=== PATIENT | male | born 1965 | race African-American/Black ===

== ENCOUNTER 2022-09-24 12:25 | Emergency (ER) | payer OTHER, SELFPAY ==
--- NOTE | ~2022-09-24 | XR_ITS ---
EXAMINATION: XR CHEST CLINICAL INFORMATION: Anxiety. COMPARISON: None available. TECHNIQUE: Frontal view of the chest was obtained. FINDINGS: No significant abnormality is noted involving the heart, lungs, mediastinum, bony thorax or soft tissues. XR/XR chest 1V IMPRESSION: No acute cardiopulmonary process.
[2022-09-24 12:35] VITALS: BP 144/92; BP 190/118; PULSE 100; PULSE 106; RESP 12; TEMP 36.4; O2SAT 97; BMI 29.2
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
--- OUTSIDE RECORDS SUMMARY | 2022-09-24 13:16 | XMS_ITS | Continuity of Care Document ---
Author Name Unknown Organization [facility] Address [address] [place] [id number]- Care Team Providers Care Transit Authority Police Officer Name Role Phone Juan CUMMINS, Kellee Vazquez Primary Care Physician Encounter [facility] Date(s): 03/21/22 - 04/20/22 [facility] [address] [place], [place] [address] Attending Physician: Rm Blunt Admitting Physician: Rm Blunt Referring Physician: AdmtrRm Allergies, Adverse Reactions, Alerts No Known Allergies Immunizations Given and Recorded Vaccine Date Status Refusal Reason SARS-CoV-2 (COVID-19) mRNA BNT-162b2 vac 04/12/21 Recorded SARS-CoV-2 (COVID-19) mRNA BNT-162b2 vac 10/09/20 Recorded SARS-CoV-2 (COVID-19) mRNA BNT-162b2 vac 09/16/20 Recorded influenza virus vaccine, inactivated 03/27/21 Juan rded influenza virus vaccine, inactivated 05/20/12 Juan rded Medications acetaminophen 325 mg oral tablet 650 mg, By Mouth, Every 4 hours, PRN, # 50 tablet, Refills 1, Tot. Refills 1, Maintenance, Pain , Moderate, 02/15/22 11:19:00 EDT, Route to Pharmacy Electronically, [facility] #[id number], Partial fill upon patient request if the prescription is... Start Date: 02/15/22 Status: Ordered Albuterol 2 puffs, Inhalation, PRN Wheezing/Shortness of Breath, 0 Refills, Maintenance, 06/04/14 16:02:35 Start Date: 06/04/14 Status: Ordered amLODIPine 5 mg oral tablet 5 mg, 1, tablet, By Mouth, Daily, # 30 tablet, Refills 0, Tot. Refills 0, Maintenance, 02/18/22 15:08:00 EDT, Route to Pharmacy Electronically, [id number], Partial fill upon patient request if the prescription is for a schedule II opioid drug.... Start Date: 02/18/22 Status: Ordered aspirin 81 mg oral delayed release tablet 81 mg, By Mouth, Daily, # 30 tablet, Refills 2, Tot. Refills 2, Maintenance, 02/18/22 15:21:00 EDT,Route to Pharmacy Electronically, [id number], Partial fill upon patient request if the prescription is for a schedule II opioid drug., 195, cm,... Start Date: 02/18/22 Status: Ordered Flovent HFA 110 mcg/inh inhalation aerosol 2 puffs = 220 mcg, Inhalation, 2 times a day, # 1 each, 0 Refills, Maintenance, 02/18/22 15:10:00 EDT, Aerosol, [id number], Partial fill upon patient request if the prescription is for a schedule II opioid drug., Ashley cm, 02/15/22 12:17:00 EDT... Start Date: 02/18/22 Status: Ordered folic acid 1 mg oral tablet 1 mg, 1, tablet, By Mouth, Daily, # 30 tablet, Refills 4, Tot. Refills 4, Maintenance, 02/18/22 15:10:00 EDT, Route to Pharmacy Electronically, [id number], Partial fill upon patient request if the prescription is for a schedule II opioid drug.... Start Date: 02/18/22 Status: Ordered gabapentin 100 mg oral capsule 300 mg, 3, capsule, By Mouth, 3 times a day, # 270 capsule, Refills 0, Tot. Refills 0, Maintenance,02/18/22 15:09:00 EDT, Route to Pharmacy Electronically, [id number], Partial fill upon patient request if the prescription is for a schedule II... Start Date: 02/18/22 Status: Ordered Keppra 500 mg oral tablet 2 tablet = 1,000 mg, By Mouth, Every 12 hours, # 360 tablet, 1 Refills, Maintenance, 03/21/22 12:46:00 EDT, Tablet, [id number], Partial fill upon patient request if the prescription is for a schedule II opioid drug., Ashley cm, 03/20/22 13:50:00... Start Date: 03/21/22 Stop Date: 09/17/22 Status: Ordered melatonin 5 mg oral tablet By Mouth, Daily at bedtime, 0 Refills, Maintenance, 02/15/22 11:12:00 EDT, Tablet, Partial fill upon patient request if the prescription is for a schedule II opioid drug. Start Date: 02/15/22 Status: Ordered OxyCONTIN 10 mg oral tablet, extended release 20 mg, 2, tablet, By Mouth, Every 12 hours, # 28 tablet, Refills 0, Tot. Refills 0, Maintenance, 02/15/22 11:12:00 EDT, Route to Pharmacy Electronically, [facility] #[id number], Partial fill upon patient request if the prescription is for a sched... Start Date: 02/15/22 Stop Date: 02/22/22 Status: Ordered Percocet-5/325 325 mg-5 mg oral tablet 2 tablet, By Mouth, Every 6 hours, PRN for pain, # 12 tablet, 0 Refills, Maintenance, Tablet Start Date: 09/06/12 Status: Ordered pyridoxine 100 mg oral tablet 0.5 tablet = 50 mg, By Mouth, Daily, # 100 tablet, 0 Refills, Maintenance, 02/18/22 15:09:00 EDT, Tablet, [facility]/pharmacy #[id number], Partial fill upon patient request if the prescription is for a schedule II opioid drug., 195, , 02/15/22 12:17:00 EDT, David... Start Date: 02/18/22 Status: Ordered Remeron 15 mg oral tablet 1 tablet = 15 mg, By Mouth, Daily at bedtime, 0 Refills, Maintenance, 04/16/22 9:59:00 EDT, Partialfill upon patient request if the prescription is for a schedule II opioid drug. Start Date: 04/16/22 Status: Ordered thiamine 100 mg oral tablet 100 mg, 1, tablet, By Mouth, 2 times a day, # 100 tablet, Refills 0, Tot. Refills 0, Maintenance, 02/18/22 15:10:00 EDT, Route to Pharmacy Electronically, [facility]/pharmacy #[id number], Partial fill upon patient request if the prescription is for a schedule II o... Start Date: 02/18/22 Status: Ordered Problem List Condition Confirmation Course Effective Dates Status Health St atus Informant Asthma Confirmed Active Neck fracture Confirmed Active Lumbar disc disease Confirmed Active Social History Social History Type Response Smoking Status Never smoker entered on: 06/04/14 Sex Male Patient Care team information Personnel Name: Juan CUMMINS, Kellee Vazquez Address: Address: [address] [place] [address], [address] Primary Care and Weight Management [address]
--- OUTSIDE RECORDS SUMMARY | 2022-09-24 13:17 | XMS_ITS | Continuity of Care Document ---
Author Name Unknown Organization [facility] Address [address] [place] [id number]- Care Team Providers Care Concrete Worker Name Role Phone Juan CUMMINS, Kellee Vazquez Primary Care Physician [phone] [id number] Date[facility]s): [facility]28[facility] - 04/04/22 [facility] [address] [place] [address]- Attending Physician: Kt CUMMINS, Terrie Rao Admitting Physician: Kt CUMMINS, Terrie Rao Referring Physician: Kt CUMMINS, Terrie Rao Allergies, Adverse Reactions, Alerts No Known Allergies [...] 02/15/22 11:19:00 EDT, Route to Pharmacy Electronically, [facility] #[id number], Partial fill upon patient request if the [...] for a schedule II opioid drug., 195, cm, 02/15/22 12:17:00 EDT... Start Date: 02/18/22 [...] for a schedule II opioid drug., 195, cm, 03/20/22 13:50:00... Start Date: 03/21/22 Stop [...] 02/15/22 11:12:00 EDT, Route to Pharmacy Electronically, [email or web address] #[id number], Partial fill upon patient request if the [...] 0 Refills, Maintenance, 02/18/22 15:09:00 EDT, Tablet, [facility]acy #[id number], Partial fill upon patient request if the prescription is for a schedule II opioid drug., 195, cm, 02/15/22 12:17:00 EDT, Heig... Start Date: 02/18/22 Status: Ordered thiamine 100 mg oral tablet 100 mg, 1, tablet, By Mouth, 2 times a day, # 100 tablet, Refills 0, Tot. Refills 0, Maintenance, 02/18/22 15:10:00 EDT, Route to Pharmacy Electronically, [facility]acy #[id number], Partial fill upon patient request if the prescription is for a schedule II o... Start Date: 02/18/22 Status: Ordered Problem List Condition Confirmation Course Effective Dates Status Health St atus Informant Asthma Confirmed Active Neck fracture Confirmed Active Lumbar disc disease Confirmed Active Vital Signs Most recent to oldest [Reference Range]: 1 Height 195 cm (03/28/22 10:22 AM) Weight 97.72 kg (03/28/22 10:22 AM) Oxygen Saturation [94-100 %] 97 % (03/28/22 10:22 AM) Pulse Rate [55-90 bpm] 93 bpm *H* (03/28/22 10:22 AM) Body Mass Index [18.5-24.99 kg/m2] 25.7 kg/m2 *H* (03/28/22 10:22 AM) Blood Pressure [90-138/55-84 mm Hg] 100/ 72mm Hg (03/28/22 10:22 AM) Mode of Delivery (Oxygen) Room air (03/28/22 10:22 AM) Blood pressure sites Arm, left (03/28/22 10:22 AM) Weight Obtained Via Patient/family state d (03/28/22 10:22 AM) Social History Social History Type Response Smoking Status Never smoker entered on: 06/04/14 Sex Male Patient Care team information Personnel Name: Juan CUMMINS, Kellee Vazquez Address: Address: [address] [place] [address], [address] Primary Care and Weight Management [address]
--- OUTSIDE RECORDS SUMMARY | 2022-09-24 13:17 | XMS_ITS | Continuity of Care Document ---
Author Name Unknown Organization [facility] Address [address] [place] [address] [address], [address] [place] [address]- Care Team Providers Care Endband Sizer Name Role Phone Juan CUMMINS, Kellee Vazquez Primary Care Physician Encounter [facility] [place] [place] Date(s): 03/06/22 - 04/05/[address], [address] [place], [place] [address] Allergies, Adverse Reactions, Alerts No Known Allergies [...] 02/15/22 11:19:00 EDT, Route to Pharmacy Electronically, [email or web address] #[id number], Partial fill upon patient request if the prescription is... Start Date: 02/15/22 Status: Ordered Albuterol 2 puffs, Inhalation, PRN Wheezing/Shortness of Breath, 0 Refills, Maintenance, 06/04/14 16:02:35 Start Date: 06/04/14 Status: Ordered amLODIPine 5 mg oral tablet 5 mg, 1, tablet, By Mouth, Daily, # 30 tablet, Refills 0, Tot. Refills 0, Maintenance, 02/18/22 15:08:00 EDT, [id number] Partial fill upon patient request if [...] is for a schedule II opioid drug., 195anthony,... Start Date: 02/18/22 Status: Ordered Flovent HFA 110 mcg/inh inhalation aerosol 2 puffs = 220 mcg, Inhalation, 2 times a day, # 1 each, 0 Refills, Maintenance, 02/18/22 15:10:00 EDT, Aerosol, [id number], Partial fill upon patient request if the prescription is for a schedule II opioid drug., anthony Ramirez, 02/15/22 12:17:00 EDT... Start Date: 02/18/22 Status: [...] 02/15/22 11:12:00 EDT, Route to Pharmacy Electronically, [facility] #[id number], Partial fill upon patient request if the [...] 0 Refills, Maintenance, 02/18/22 15:09:00 EDT, Tablet, [facility]acy #[id number], Partial fill upon patient request if the prescription is for a schedule II opioid drug., 195, cm, 02/15/22 12:17:00 EDT, Heig... Start Date: 02/18/22 Status: Ordered thiamine 100 mg oral tablet 100 mg, 1, tablet, By Mouth, 2 times a day, # 100 tablet, Refills 0, Tot. Refills 0, Maintenance, 02/18/22 15:10:00 EDT, Route to Pharmacy Electronically, [facility]acy #[id number], Partial fill upon patient request if [...] Name: Juan CUMMINS, Kellee Vazquez Address: Address: [address] [place] [address], [address] Primary Care and Weight Management [address]
--- OUTSIDE RECORDS SUMMARY | 2022-09-24 13:17 | XMS_ITS | Continuity of Care Document ---
Author Name Unknown Organization [facility] Address [address] [place] [address] [address], [address] [place] [address]- Care Team Providers Care Drug Enforcement Agent Name Role Phone Juan CUMMINS, Kellee Vazquez Primary Care Physician Encounter [facility] Date(s): 03/12/22 - 04/11/[address], [address] [place], [place] [address] Attending Physician: Admtr, [id number] Admitting Physician: Admtr, [id number] Referring Physician: Admtr, Ar8 Allergies, Adverse Reactions, Alerts No Known Allergies [...] 02/15/22 11:19:00 EDT, Route to Pharmacy Electronically, [facility] #[id number], Partial fill upon patient request if the [...] 02/15/22 11:12:00 EDT, Route to Pharmacy Electronically, [facility] #[id number], Partial fill upon patient request if the [...] 0 Refills, Maintenance, 02/18/22 15:09:00 EDT, Tablet, [facility]/pharmacy #[id number], Partial fill upon patient request if the prescription is for a schedule II opioid drug., 195, cm, 02/15/22 12:17:00 EDT, Heig... Start Date: 02/18/22 Status: Ordered thiamine 100 mg oral tablet 100 mg, 1, tablet, By Mouth, 2 times a day, # 100 tablet, Refills 0, Tot. Refills 0, Maintenance, 02/18/22 15:10:00 EDT, Route to Pharmacy Electronically, [facility]/pharmacy #[id number], Partial fill upon patient request if [...] Name: Juan CUMMINS, Kellee Vazquez Address: Address: [address] [place] [address], [address] Primary Care and Weight Management [place], [place] [address]
--- OUTSIDE RECORDS SUMMARY | 2022-09-24 13:17 | XMS_ITS | Continuity of Care Document ---
Author Name Unknown Organization [facility] Address [address] [place] [address] [address], [address] [place] [address]- Care Team Providers Care Drill Press Tender Name Role Phone Juan CUMMINS, Kellee Vazquez Primary Care Physician Encounter [facility] Date(s): 04/16/22 - 04/23/[address], [address] [place], [place] [address] Attending Physician: Not on Staff, Attending MD Allergies, Adverse Reactions, Alerts No Known Allergies [...] 02/15/22 11:19:00 EDT, Route to Pharmacy Electronically, [facility] #[id number], Partial fill upon patient request if the prescription is... Start Date: 02/15/22 Status: Ordered Albuterol 2 puffs, Inhalation, PRN Wheezing/Shortness of Breath, 0 Refills, Maintenance, 06/04/14 16:02:35 Start Date: 06/04/14 Status: Ordered amLODIPine 5 mg oral tablet 5 mg, 1, tablet, By Mouth, Daily, # 30 tablet, Refills 0, Tot. Refills 0, Maintenance, 02/18/22 15:08:00 EDT, Route to Pharmacy Electronically, [facility] #[id number], Partial fill upon [...] 0 Refills, Maintenance, 02/18/22 15:10:00 EDT, Aerosol, [facility]acy #[id number], Partial fill upon patient request if the prescription is for a schedule II opioid drug., 195 cm, 02/15/22 12:17:00 EDT... Start Date: 02/18/22 [...] is for a schedule II opioid drug., 195 cm, 03/20/22 13:50:00... Start Date: 03/21/22 Stop [...] 02/15/22 11:12:00 EDT, Route to Pharmacy Electronically, [facility] #[id number], Partial fill upon patient request if the [...] 0 Refills, Maintenance, 02/18/22 15:09:00 EDT, Tablet, [facility]acy #[id number], Partial fill upon patient request if the prescription is for a schedule II opioid drug., 195, cm, 02/15/22 12:17:00 EDT, Heig... Start Date: 02/18/22 Status: Ordered Remeron 15 [...] 02/18/22 15:10:00 EDT, Route to Pharmacy Electronically, [facility] #[id number], Partial fill upon patient request if the prescription is for a schedule II o... Start Date: 02/18/22 Status: Ordered Problem List Condition Confirmation Course Effective Dates Status Health St atus Informant Asthma Confirmed Active Neck fracture Confirmed Active Lumbar disc disease Confirmed Active Vital Signs Most recent to oldest [Reference Range]: 1 Height 195 cm (04/16/22 9:57 AM) Weight 97 kg (04/16/22 9:57 AM) Body Mass Index [18.5-24.99 kg/m2] 25.51 kg/m2 *H* (04/16/22 9:57 AM) Social History Social History Type Response Smoking Status Never smoker entered on: 06/04/14 Sex Male Patient Care team information Personnel Name: Juan CUMMINS, Kellee Vazquez Address: Address: [address] [place] [address], [address] Primary Care and Weight Management [address]
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
--- OUTSIDE RECORDS SUMMARY | 2022-09-24 13:17 | XMS_ITS | Continuity of Care Document ---
Author Name Unknown Organization [facility] Address [address] [place] [address]- Care Team Providers Care Customer Solutions Specialist Name Role Phone Juan CUMMINS, Kellee Vazquez Primary Care Physician [place] [facility] [place] - 09/06/[address] [address]- Attending Physician: Lisandro Otero MD Admitting Physician: Lisandro Otero MD Referring Physician: Linda Bucio Allergies, Adverse Reactions, Alerts No Known Allergies [...] 02/15/22 11:19:00 EDT, Route to Pharmacy Electronically, [facility] #[id number], Partial fill upon patient request if the [...] a schedule II opioid drug., anthony Ramirez, 03/20/22 13:50:00... Start Date: 03/21/22 Stop Date: [...] 02/15/22 11:12:00 EDT, Route to Pharmacy Electronically, [id number], Partial fill upon patient request if the prescription is for a sched... Start Date: 02/15/22 Stop Date: 02/22/22 Status: Ordered pyridoxine 100 mg oral tablet 0.5 tablet = 50 mg, By Mouth, Daily, # 100 tablet, 0 Refills, Maintenance, 02/18/22 15:09:00 EDT, Tablet, [facility]/pharmacy #[id number], Partial fill upon patient request if the prescription is for a schedule II opioid drug., anthony Ramirez, 02/15/22 12:17:00 EDT, Heig... Start Date: 02/18/22 [...] 02/18/22 15:10:00 EDT, Route to Pharmacy Electronically, [facility]/pharmacy #[id number], Partial fill upon patient request [...] 06/04/14 Sex Male Patient Care team information Care Team Personnel Name: Carine CUMMINS, Jose Braun Position: [facility] Renal MD Member Role: Lifetime Consulting Physician Address: Address: [address] [place] [address], [address] [place] [address]- Name: Kellee Martinez MD Position: [facility] Physician (General Medicine) Member Role: PCP Address: Address: [address] [place] [address] [address] [facility] [address] Name: Lashon Rivero RN Position: [facility] RN Member Role: Primary Care Nurse Name: Jesse Fitzgerald MD Position: [facility] Renal MD Member Role: Lifetime Consulting Physician Address: Address: [address] [place] [address] [facility] [address] Care Team Related Persons Name: TARA POWELL Address: [place] [address] Name: MARNIE JAY Address: home [address] [place] [address] Name: HAILE ZHAO Address: home [address] [place] [address] Name: HAILE CHINCHILLA Address: home [address] [place] [address]
--- OUTSIDE RECORDS SUMMARY | 2022-09-24 13:17 | XMS_ITS | Continuity of Care Document ---
Author Name Unknown Organization [facility] Address [address] [facility], [address]r d Floor, [address] [place] [address]- Care Team Providers Care Cabinet Installer Name Role Phone Juan CUMMINS, Kellee Vazquez Primary Care Physician [phone] Encounter [facility] [place] Date(s): 04/09/22 - 05/09/22 [facility] [address] [facility], 3rd Floor, [address] [place] [id number] Allergies, Adverse Reactions, Alerts No Known Allergies [...] 02/15/22 11:19:00 EDT, Route to Pharmacy Electronically, [facility] #[id number], Partial fill upon patient request if the prescription is... Start Date: 02/15/22 Status: Ordered Albuterol 2 puffs, Inhalation, PRN Wheezing/Shortness of Breath, 0 Refills, Maintenance, 06/04/14 16:02:35 Start Date: 06/04/14 Status: Ordered amLODIPine 5 mg oral tablet 5 mg, 1, tablet, By Mouth, Daily, # 30 tablet, Refills 0, Tot. Refills 0, Maintenance, 02/18/22 15:08:00 EDT, [id number] Partial fill upon patient [...] 02/15/22 11:12:00 EDT, Route to Pharmacy Electronically, [facility] #[id number], Partial fill upon patient request if the [...] 0 Refills, Maintenance, 02/18/22 15:09:00 EDT, Tablet, [facility]/pharmacy #[id number], Partial fill upon patient request if the prescription is for a schedule II opioid drug., 195, cm, 02/15/22 12:17:00 EDT, David... Start Date: 02/18/22 [...] Care team information Care Team Personnel Name: Jose Hawk MD Position: [facility] Renal MD Member Role: Lifetime Consulting Physician Address: Address: [address] [place] [address], [address] [place] [address]- Name: Kellee Martinez MD Position: [facility] Physician (General Medicine) Member Role: PCP Address: Address: [address] [place] [address] [address] Primary [place] [address]- Name: Lashon Rivero RN Position: [facility] RN Member Role: Primary Care Nurse Name: Jesse Fitzgerald MD Position: [facility] Renal MD Member Role: Lifetime Consulting Physician Address: Address: [address] [place] [address] [facility] [address] Care Team Related Persons Name: TARA POWELL Address: [place] [address] Name: MARNIE JAY Address: home [address] [place] [address] Name: HAILE ZHAO Address: home [address] [place] [address] Name: HAILE CIHNCHILLA Address: home [address] [place] [address]
--- OUTSIDE RECORDS SUMMARY | 2022-09-24 13:17 | XMS_ITS | Continuity of Care Document ---
Author Name Unknown Organization [facility] Address [address] [place] [address] [address], [address] [place] [address]- Care Team Providers Care Telecom Specialist Name Role Phone Juan CUMMINS, Kellee Vazquez Primary Care Physician [place] [facility] [place] - 08/22/[address], [address] [place] [address]- Attending Physician: AdmRm talamantes Admitting Physician: AdmtrRm Referring Physician: Admtr, Ar8 Allergies, Adverse Reactions, [...] 02/15/22 11:19:00 EDT, Route to Pharmacy Electronically, [facility] #[id number], Partial fill upon patient request if the prescription is... Start Date: 02/15/22 Status: Ordered Albuterol 2 puffs, Inhalation, PRN Wheezing/Shortness of Breath, 0 Refills, Maintenance, 06/04/14 16:02:35 Start Date: 06/04/14 Status: Ordered amLODIPine 5 mg oral tablet 5 mg, 1, tablet, By Mouth, Daily, # 30 tablet, Refills 0, Tot. Refills 0, Maintenance, 02/18/22 15:08:00 EDT, Route to Pharmacy Electronically, [facility]/pharmacy #[id number], Partial fill upon patient [...] 0 Refills, Maintenance, 02/18/22 15:10:00 EDT, Aerosol, [facility]/pharmacy #[id number], Partial fill upon patient request if the prescription is for a schedule II opioid drug., 195, cm, 02/15/22 12:17:00 EDT... Start Date: 02/18/22 Status: Ordered folic acid 1 mg oral tablet 1 mg, 1, tablet, By Mouth, Daily, # 30 tablet, Refills 4, Tot. Refills 4, Maintenance, 02/18/22 15:10:00 EDT, Route to Pharmacy Electronically, [facility]/pharmacy #[id number], Partial fill upon patient [...] 02/15/22 11:12:00 EDT, Route to Pharmacy Electronically, [facility] #[id number], Partial fill upon patient request if the prescription is for a sched... Start Date: 02/15/22 Stop Date: 02/22/22 Status: Ordered pyridoxine 100 mg oral tablet 0.5 tablet = 50 mg, By Mouth, Daily, # 100 tablet, 0 Refills, Maintenance, 02/18/22 15:09:00 EDT, Tablet, [facility]/pharmacy #[id number], Partial fill upon patient [...] 02/18/22 15:10:00 EDT, Route to Pharmacy Electronically, [facility]/pharmacy #[id number], Partial fill upon patient [...] Personnel Name: Carine CUMMINS, Jose Braun Position: [facility] Renal MD Member Role: Lifetime Consulting Physician Address: Address: [address] [place] [address], [address] Name: Kellee Martinez MD Position: [facility] Physician (General Medicine) Member Role: PCP Address: Address: [address] [place] [address], [address] [facility] [address] Name: Lashon Rivero RN Position: [facility] RN Member Role: Primary Care Nurse Name: Jesse Fitzgerald MD Position: [facility] Renal MD Member Role: Lifetime Consulting Physician Address: Address: [address] [place] [address] [facility] [address] Care Team Related Persons Name: SHERRY TARA Address: [place] [address] Name: MARNIE JAY Address: home [address] [place] [address] Name: HAILE ZHAO Address: home [address] [place] [address] Name: HAILE CHINCHILLA Address: home [address] [place] [address]
--- OUTSIDE RECORDS SUMMARY | 2022-09-24 13:17 | XMS_ITS | Continuity of Care Document ---
Author Name Unknown Organization [facility] Address [address] [place] [address] [address], [address] [place] [address]- Care Team Providers Care Senior Vice President And Chief Information Officer Name Role Phone Juan CUMMINS, Kellee Vazquez Primary Care Physician [place] [facility] [place](s[place] 04/16/22 - 05/16/[address], [address] [place], [place] [address] Attending Physician: Admtr, [id number] Admitting Physician: Admtr, [...] 02/15/22 11:19:00 EDT, Route to Pharmacy Electronically, [facility] #[id number], Partial fill upon patient request if the [...] 02/15/22 11:12:00 EDT, Route to Pharmacy Electronically, [facility] #[id number], Partial fill upon patient request if the [...] 0 Refills, Maintenance, 02/18/22 15:09:00 EDT, Tablet, [facility]/pharmacy #[id number], Partial fill upon patient request if the prescription is for a schedule II opioid drug., 195, cm, 02/15/22 12:17:00 EDT, [facility]... Start Date: 02/18/22 Status: Ordered Remeron 15 [...] 02/18/22 15:10:00 EDT, Route to Pharmacy Electronically, [facility]/pharmacy #[id number], Partial fill upon patient [...] Personnel Name: Carine CUMMINS, Jose Braun Position: [facility] Renal MD Member Role: Lifetime Consulting Physician Address: Address: [address] [place] [address], [address] Name: Kellee Martinez MD Position: [facility] Physician (General Medicine) Member Role: PCP Address: Address: [address] [place] [address], [address] [facility] [address] Name: Lashon Rivero RN Position: [facility] RN Member Role: Primary Care Nurse Name: Jesse Fitzgerald MD Position: [facility] Renal MD Member Role: Lifetime Consulting Physician Address: Address: [address] [place] [address] [facility] [address] Care Team Related Persons Name: TARA POWELL Address: [place] [address] Name: MARNIE JAY Address: home [address] [place] [address] Name: HAILE ZHAO Address: home [address] [place] [address] Name: HAILE CHINCHILLA Address: home [address] [place] [address]
--- OUTSIDE RECORDS SUMMARY | 2022-09-24 13:17 | XMS_ITS | Continuity of Care Document ---
Author Name Unknown Organization [facility] Address [address] [place] [address] [address], [address] [place] [address]- Care Team Providers Care Data Management Engineer Name Role Phone Juan CUMMINS, Kellee Vazquez Primary Care Physician [place] [facility] [place] Date(s): 03/12/22 - 03/19/[address], [address] [place], [place] [address] Attending Physician: Not on Staff, Attending MD Referring Physician: Brit Vázquez Allergies, Adverse Reactions, Alerts No Known Allergies [...] 02/15/22 11:19:00 EDT, Route to Pharmacy Electronically, [facility] #[id number], Partial fill upon patient request if the [...] 195, cm,... Start Date: 02/18/22 Status: Ordered Flonase 2 sprays, Nares, Both, 2 times a day, 0 Refills, Maintenance, 12/03/16 17:15:19 Start Date: 12/03/16 Status: Ordered Flovent HFA 110 mcg/inh inhalation aerosol 2 puffs = 220 mcg, Inhalation, 2 times a day, # 1 each, 0 Refills, Maintenance, 02/18/22 15:10:00 EDT, Aerosol, [facility]/pharmacy #[id number], Partial fill upon patient request if the prescription is for a schedule II opioid drug., 195, cm, 02/15/22 12:17:00 EDT... Start Date: 02/18/22 Status: Ordered folic acid 1 mg oral tablet 1 mg, 1, tablet, By Mouth, Daily, # 30 tablet, Refills 4, Tot. Refills 4, Maintenance, 02/18/22 15:10:00 EDT, Route to Pharmacy Electronically, [facility]/pharmacy #[id number], Partial fill upon patient request [...] mg, By Mouth, Every 12 hours, # 120 tablet, 0 Refills, Maintenance, 02/18/22 15:09:00 EDT, Tablet, [facility]/pharmacy #[id number], Partial fill upon patient request if the prescription is for a schedule II opioid drug., anthony Ramirez, 02/15/22 12:17:00... Start Date: 02/18/22 Status: Ordered melatonin 5 mg oral tablet [...] 02/15/22 11:12:00 EDT, Route to Pharmacy Electronically, [facility] #[id number], Partial fill upon patient request if the [...] Refills, Maintenance, 02/18/22 15:09:00 EDT, Tablet, [facility]/pharmacy #[id number], Partial fill upon patient request if the prescription is for a schedule II opioid drug., anthony Ramirez, 02/15/22 12:17:00 EDT, Heig... Start Date: 02/18/22 Status: Ordered thiamine 100 mg oral tablet 100 mg, 1, tablet, By Mouth, 2 times a day, # 100 tablet, Refills 0, Tot. Refills 0, Maintenance, 02/18/22 15:10:00 EDT, Route to Pharmacy Electronically, [facility]/pharmacy #[id number], Partial fill upon patient request if the prescription is for a schedule II o... Start Date: 02/18/22 Status: Ordered Problem List Condition Effective Dates Status Health Status Inform ant Asthma(Confirmed) Active Neck fracture(Confirmed) Active Lumbar disc disease(Confirmed) Active Vital Signs Most recent to oldest [Reference Range]: 1 Height 195 cm (03/12/22 9:10 AM) Weight 109 kg (03/12/22 9:10 AM) Body Mass Index [18.5-24.99] 28.67 *H* (03/12/22 9:10 AM) Social History Social History Type Response Smoking Status Never smoker entered on: 06/04/14 Sex Care Team Personnel Name: Juan CUMMINS, Kellee Vazquez Address: [address] [place] [address], [address] [facility] Weight Management [address]
--- OUTSIDE RECORDS SUMMARY | 2022-09-24 13:17 | XMS_ITS | Continuity of Care Document ---
Author Name Unknown Organization [facility] Address [address] [place] [address]- Care Team Providers Care Commodities Trader Name Role Phone Juan CUMMINS, Kellee Vazquez Primary Care Physician [place] [facility] [place] [facility] [address] [place], [place] [address] Attending Physician: Rm Blunt Admitting Physician: Rm [...] 02/15/22 11:19:00 EDT, Route to Pharmacy Electronically, [facility] #[id number], Partial fill upon patient request if the [...] is for a schedule II opioid drug., 195anthony, 03/20/22 13:50:00... Start Date: 03/21/22 Stop Date: [...] 02/15/22 11:12:00 EDT, Route to Pharmacy Electronically, [facility] #[id number], Partial fill upon patient request if the [...] 0 Refills, Maintenance, 02/18/22 15:09:00 EDT, Tablet, [facility]/pharmacy #[id number], Partial fill upon patient request if the prescription is for a schedule II opioid drug., Ashley, anthony, 02/15/22 12:17:00 EDT, David... Start Date: 02/18/22 [...] 02/18/22 15:10:00 EDT, Route to Pharmacy Electronically, [facility]/pharmacy #[id number], Partial fill upon patient [...] Name: Juan CUMMINS, Kellee Vazquez Address: Address: [address] [place] [address], [address] [facility] [address]
--- OUTSIDE RECORDS SUMMARY | 2022-09-24 13:17 | XMS_ITS | Continuity of Care Document ---
Author Name Unknown Organization [facility] Address [address] [facility], 3r d Floor, [address] [place] [address]- Care Team Providers Care Newcomer Hostess Name Role Phone Juan CUMMINS, Kellee Vazquez Primary Care Physician [phone] [place] [facility] [place] 04[place]19/22 [facility] [address] [facility], 3rd Floor, [address] [place] [address] Attending Physician: Admalbin, Rm Admitting Physician: AdmtrRm Referring Physician: Admtr, Ar8 [...] 02/15/22 11:19:00 EDT, Route to Pharmacy Electronically, [facility] #[id number], Partial fill upon patient request if the [...] 02/15/22 11:12:00 EDT, Route to Pharmacy Electronically, [facility] #[id number], Partial fill upon patient request if the [...] Maintenance, 02/18/22 15:09:00 EDT, Tablet, [facility]/pharmacy #[id number], Partial fill upon patient request if [...] EDT, Route to Pharmacy Electronically, [facility]/pharmacy #[id number], Partial fill upon patient request if [...] Name: Juan CUMMINS, Kellee Vazquez Address: Address: [address] [place] [address], [address] Primary [facility] Weight Management [address]
--- OUTSIDE RECORDS SUMMARY | 2022-09-24 13:17 | XMS_ITS | Continuity of Care Document ---
Author Name Unknown Organization [facility] Address [address] [place] [address]- Care Team Providers Care Cuff Knitter Name Role Phone Juan CUMMINS, Kellee Vazquez Primary Care Physician [place] [facility] [place] [facility] [address] [place], [place] [address] Attending Physician: Rm Blunt Admitting [...] 02/15/22 11:19:00 EDT, Route to Pharmacy Electronically, [facility] #[id number], Partial fill upon patient request if the [...] 02/15/22 11:12:00 EDT, Route to Pharmacy Electronically, [facility] #[id number], Partial fill upon patient request if the [...] 0 Refills, Maintenance, 02/18/22 15:09:00 EDT, Tablet, [facility]/pharmacy #[id number], Partial fill upon [...] 02/18/22 15:10:00 EDT, Route to Pharmacy Electronically, [facility]/pharmacy #[id number], Partial fill upon [...] Name: Juan CUMMINS, Kellee Vazquez Address: Address: [address] [place] [address], [address] [facility] [address]
--- OUTSIDE RECORDS SUMMARY | 2022-09-24 13:17 | XMS_ITS | Continuity of Care Document ---
Author Name Unknown Organization [facility] Address [address] [place], [place] [address], [address] [place] [address]- Care Team Providers Care Portable Sawyer Name Role Phone Juan CUMMINS, Kellee Vazquez Primary Care Physician [phone] [place] [facility] [place] - 08/22/[address], [address] [place] [address]- Attending Physician: Serafin Lawson MD Referring Physician: Brit Vázquez Allergies, Adverse [...] 02/15/22 11:19:00 EDT, Route to Pharmacy Electronically, [facility] #[id number], Partial fill upon patient request if the [...] a schedule II opioid drug., Ashley, anthony, 03/20/22 13:50:00... Start Date: 03/21/22 Stop Date: [...] 02/15/22 11:12:00 EDT, Route to Pharmacy Electronically, [facility] #[id number], Partial fill upon patient request if the [...] Team Personnel Name: Jose Hawk MD Position: [facility] Renal MD Member Role: Lifetime Consulting Physician Address: Address: [address] [place] [address], [address] Name: Kellee Martinez MD Position: [facility] Physician (General Medicine) Member Role: PCP Address: Address: [address] [place] [address], [address] [facility] [address] Name: Lashon Rivero RN Position: [facility] RN Member Role: Primary Care Nurse Name: Jesse Fitzgerald MD Position: [facility] Renal MD Member Role: Lifetime Consulting Physician Address: Address: [address] [place] [address] [facility] [address] Care Team Related Persons Name: TARA POWELL Address: [place] [address] Name: MARNIE JAY Address: home [address] [place] [address] Name: HAILE ZHAO Address: home [address] [place] [address] Name: HAILE CHINCHILLA Address: home [address] [place] [address]
--- OUTSIDE RECORDS SUMMARY | 2022-09-24 13:17 | XMS_ITS | Continuity of Care Document ---
Author Name Unknown Organization [facility] Address [address] [place] [address]- Care Team Providers Care Tile Picker Name Role Phone Juan CUMMINS, Kellee Vazquez Primary Care Physician Encounter 02/16/22 - 03/21/22 [facility] [address] [place] [address]- Discharge Disposition: CLIENT NO LONGER REQUIRES SKILLED CARE Allergies, Adverse Reactions, Alerts No Known Allergies [...] 02/15/22 11:19:00 EDT, Route to Pharmacy Electronically, [facility] #[id number], Partial fill upon patient request if the prescription is... Start Date: 02/15/22 Status: Ordered Albuterol 2 puffs, Inhalation, PRN Wheezing/Shortness of Breath, 0 Refills, Maintenance, 06/04/14 16:02:35 Start Date: 06/04/14 Status: Ordered amLODIPine 5 mg oral tablet 5 mg, 1, tablet, By Mouth, Daily, # 30 tablet, Refills 0, Tot. Refills 0, Maintenance, 02/18/22 15:08:00 EDT, [id number], Partial fill upon patient request if the [...] 02/15/22 11:12:00 EDT, Route to Pharmacy Electronically, [facility] #[id number], Partial fill upon patient request if the [...] 0 Refills, Maintenance, 02/18/22 15:09:00 EDT, Tablet, [facility]/pharmacy #[id number], Partial fill upon patient request if the prescription is for a schedule II opioid drug., anthony Ramirez, 02/15/22 12:17:00 EDT, Heig... Start Date: 02/18/22 Status: Ordered thiamine 100 mg oral tablet 100 mg, 1, tablet, By Mouth, 2 times a day, # 100 tablet, Refills 0, Tot. Refills 0, Maintenance, 02/18/22 15:10:00 EDT, Route to Pharmacy Electronically, [facility]/pharmacy #[id number], Partial fill upon patient [...] Name: Juan CUMMINS, Kellee Vazquez Address: Address: [address] [place] [address], [address] Primary Care and Weight Management [place], [place] [address]
--- OUTSIDE RECORDS SUMMARY | 2022-09-24 13:17 | XMS_ITS | Continuity of Care Document ---
Author Name Unknown Organization [facility] Address [address] [facility], 3r d Floor, [address] [place] [address]- Care Team Providers Care Field Naturalist Name Role Phone Juan CUMMINS, Kellee Vazquez Primary Care Physician [phone] [place] [facility] [place]): [place] - 04/19/22 [facility] [address] [facility], 3rd Floor, [address] [place] [address] Attending Physician: Admalbin, Rm Admitting Physician: AdmtrRm [...] 02/15/22 11:19:00 EDT, Route to Pharmacy Electronically, [facility] #[id number], Partial fill upon patient request if the [...] 02/15/22 11:12:00 EDT, Route to Pharmacy Electronically, [facility] #[id number], Partial fill upon patient request if the [...] Name: Juan CUMMINS, Kellee Vazquez Address: Address: [address] [place] [address], [address] Primary Care and Weight Management [address]
--- OUTSIDE RECORDS SUMMARY | 2022-09-24 13:17 | XMS_ITS | Continuity of Care Document ---
Author Name Unknown Organization [facility] ter Address [address] [place] [id number]- Care Team Providers Care Vice President Quality Name Role Phone Kellee Martinez MD Primary Care Physician Encounter [facility] Date(s): 02/15/22 - 03/17/[address] [address]- Attending Physician: Not on Staff, Attending MD Admitting Physician: Not on Staff, Admitting MD Referring Physician: Not on Staff, Referring MD Allergies, Adverse Reactions, Alerts No Known Allergies Immunizations Given and Recorded Vaccine Date Status Refusal Reason SARS-CoV-2 (COVID-19) mRNA BNT-162b2 vac 04/12/21 Recorded SARS-CoV-2 (COVID-19) mRNA BNT-162b2 vac 10/09/20 Recorded SARS-CoV-2 (COVID-19) mRNA BNT-162b2 vac 09/16/20 Recorded influenza virus vaccine, inactivated 03/27/21 Ujan rded influenza virus vaccine, inactivated 05/20/12 Juan rded Medications acetaminophen 325 mg oral tablet 650 mg, By Mouth, Every 4 hours, PRN, # 50 tablet, Refills 1, Tot. Refills 1, Maintenance, Pain , Moderate, 02/15/22 11:19:00 EDT, Route to Pharmacy Electronically, [facility] #[id number], Partial fill upon patient request if the [...] 0 Refills, Maintenance, 02/18/22 15:10:00 EDT, Aerosol, [facility]/pharmacy #[id number], Partial fill upon patient request if [...] 0 Refills, Maintenance, 02/18/22 15:09:00 EDT, Tablet, [facility]/pharmacy #[id number], Partial fill upon patient request if [...] 02/15/22 11:12:00 EDT, Route to Pharmacy Electronically, [facility] #[id number], Partial fill upon patient request if the [...] 0 Refills, Maintenance, 02/18/22 15:09:00 EDT, Tablet, [facility]/pharmacy #[id number], Partial fill upon patient request if the prescription is for a schedule II opioid drug., anthony Ramirez, 02/15/22 12:17:00 EDT, [facility]... Start Date: 02/18/22 Status: Ordered thiamine 100 mg oral tablet 100 mg, 1, tablet, By Mouth, 2 times a day, # 100 tablet, Refills 0, Tot. Refills 0, Maintenance, 02/18/22 15:10:00 EDT, Route to Pharmacy Electronically, [facility]/pharmacy #[id number], Partial fill upon patient request if the prescription is for a schedule II o... Start Date: 02/18/22 Status: Ordered Problem List Condition Effective Dates Status Health Status Inform ant Asthma(Confirmed) Active Neck fracture(Confirmed) Active Lumbar disc disease(Confirmed) Active Social History Social History Type Response Smoking Status Never smoker entered on: 06/04/14 Sex Care Team Personnel Name: Juan CUMMINS, Kellee Vazquez Address: [address] [place] [address], [address] Primary Care and Weight Management [address]
--- OUTSIDE RECORDS SUMMARY | 2022-09-24 13:17 | XMS_ITS | Continuity of Care Document ---
Author Name Unknown Organization [facility] Address [address] [place] [id number]- Care Team Providers Care Wedger And Gluer Name Role Phone Juan CUMMINS, Kellee Vazquez Primary Care Physician [phone] [facility] Date(s): 08/07/22 - 09/06/[address] [address]- Attending Physician: Rm Blunt Admitting Physician: AdmRm talamantes Referring Physician: AdmtrRm Allergies, Adverse Reactions, Alerts [...] 02/15/22 11:19:00 EDT, Route to Pharmacy Electronically, [facility] #[id number], Partial fill upon patient request if the prescription is... Start Date: 02/15/22 Status: Ordered Albuterol 2 puffs, Inhalation, PRN Wheezing/Shortness of Breath, 0 Refills, Maintenance, 06/04/14 16:02:35 Start Date: 06/04/14 Status: Ordered amLODIPine 5 mg oral tablet 5 mg, 1, tablet, By Mouth, Daily, # 30 tablet, Refills 0, Tot. Refills 0, Maintenance, 02/18/22 15:08:00 EDT, Route to Pharmacy Electronically, [facility]/pharmacy #[id number], Partial fill upon patient [...] 0 Refills, Maintenance, 02/18/22 15:10:00 EDT, Aerosol, [facility]/pharmacy #[id number], Partial fill upon patient request if the prescription is for a schedule II opioid drug., 195, cm, 02/15/22 12:17:00 EDT... Start Date: 02/18/22 Status: Ordered folic acid 1 mg oral tablet 1 mg, 1, tablet, By Mouth, Daily, # 30 tablet, Refills 4, Tot. Refills 4, Maintenance, 02/18/22 15:10:00 EDT, Route to Pharmacy Electronically, [facility]/pharmacy #[id number], Partial fill upon patient [...] 02/15/22 11:12:00 EDT, Route to Pharmacy Electronically, [facility] #[id number], Partial fill upon patient request if the prescription is for a sched... Start Date: 02/15/22 Stop Date: 02/22/22 Status: Ordered pyridoxine 100 mg oral tablet 0.5 tablet = 50 mg, By Mouth, Daily, # 100 tablet, 0 Refills, Maintenance, 02/18/22 15:09:00 EDT, Tablet, [facility]/pharmacy #[id number], Partial fill upon patient [...] 02/18/22 15:10:00 EDT, Route to Pharmacy Electronically, [facility]/pharmacy #[id number], Partial fill upon patient [...] Member Role: Lifetime Consulting Physician Address: Address: [address] [place] [address], [address] Name: Kellee Martinez MD Position: [facility] Physician (General Medicine) Member Role: PCP Address: Address: [address] [place] [address], [address] Primary Care and Weight Management [address] Name: Lashon Rivero RN Position: [facility] RN Member Role: Primary Care Nurse Name: Jesse Fitzgerald MD Position: [facility] Renal MD Member Role: Lifetime Consulting Physician Address: Address: [address] [place] [address] [facility] [address] Care Team Related Persons Name: SHERRY TARA Address: [place] [address] Name: MARNIE JAY Address: home [address] [place] [address] Name: HAILE ZHAO Address: home [address] [place] [address] Name: HAILE CHINCHILLA Address: home [address] [place] [address]
--- NOTE | 2022-09-24 14:11 | ECG_ITS ---
Test Reason : ANXIETY Blood Pressure : / mmHG Vent. Rate : 100 BPM Atrial Rate : 100 BPM P-R Int : 130 ms QRS Dur : 078 ms QT Int : 314 ms P-R-T Axes : 065 046 -03 degrees QTc Int : 405 ms Normal sinus rhythm Possible Left atrial enlargement Nonspecific ST and T wave abnormality Abnormal ECG No previous ECGs available Referred By: Jim Mcclain Electronically Signed By:Erik Broderick
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
[2022-09-24] MEDS: 0.9 % Sodium Chloride 1,000 ML 999 ML IV (14:35)
--- NOTE | 2022-09-24 14:36 | PC.NURSE ---
labs drawn and sent to lab. IV inserted. fluids running. will cont to javier
[2022-09-24 14:37] LABS: MANUAL DIFF FLAG NO
[2022-09-24 14:43] LABS: Basophils Percent Auto 0.3 % (0-2); Eosinophils Percent Auto 0.1 % (0-4); Hematocrit 50.6 % (42.0-52.0); Hemoglobin 16.6 g/dl (14.0-18.0); Imm Gran Abs Auto 0.05 X10*3/uL (0.00-0.03); Imm Gran Pct Auto 0.5 % (0.0-0.4); Lymphocytes Absolute Auto 1.1 X10*3/uL (1.2-4.9); Lymphocytes Percent Auto 9.9 % (20-40); Mean Corpuscular HGB Conc 32.8 g/dl (31.0-36.0); Mean Corpuscular Hemoglobin 26.9 pg (27.0-33.0); Mean Corpuscular Volume 81.9 fL (80.0-98.0); Mean Platelet Volume 9.7 fL (9.4-12.4); Monocytes Percent Auto 9.5 % (2-11); Neutrophils Absolute Auto 8.8 x10*3/uL (2.0-8.3); Neutrophils Percent Auto 79.7 % (45-73); Platelet Count 284 X10*3/uL (160-400); Red Blood Count 6.18 X10*6/uL (4.60-5.80); Red Cell Distribution Width 18.6 % (11.0-16.0)
[2022-09-24 15:01] LABS: Troponin-I High Sensitivity 12.7 ng/L (<3.5-35.0)
[2022-09-24 15:14] VITALS: BP 124/87; PULSE 97; RESP 11; O2SAT 99
[2022-09-24 15:20] LABS: Influenza A PCR NEGATIVE (Negative); Influenza B PCR NEGATIVE (Negative); Resp Syncy Virus RNA Qual PCR NEGATIVE (Negative); SARS COV2 PCR INHOUSE NEGATIVE (Negative)
[2022-09-24 15:26] LABS: Appearance Urine Clear; Color Urine Yellow; Glucose Urine UA >=1000 mg/dL (Negative); Leukocyte Esterase Urine Negative (Negative); Nitrite Urine Negative (Negative); UMIC TRIGGER UACC YES; Urine Blood Negative (Negative); Urine Ketones Trace mg/dL (Negative); Urine Protein 30 (1+) mg/dL (Neg-Trace)
[2022-09-24 15:28] LABS: Bacteria Urine None Seen (None Seen); Hyaline Casts Urine 0-2 /LPF (0-2); RBC Urine 0-2 /HPF (0-2); Squamous Epithelial Cell Urine 0-2 /HPF (0-2); WBC Urine 0-5 /HPF (0-5)
[2022-09-24 15:36] LABS: Alanine Aminotransferase 19 U/L (0-40); Albumin Level 4.1 g/dL (3.5-5.0); Alkaline Phosphatase 49 U/L (39-117); Anion Gap 17 (12-20); Aspartate Amino Transferase 32 U/L (5-37); Bilirubin Direct 0.3 mg/dL (0.0-0.5); Bilirubin Total 1.2 mg/dL (0.0-1.0); Blood Urea Nitrogen 8 mg/dL (9-16); Calcium 9.3 mg/dL (8.4-10.2); Carbon Dioxide 21 mmol/L (22-29); Chloride 103 mmol/L (96-108); Creatinine Clr Calc Pharmacy 78.4; Estimated Glomerular Filt Rate 52; Glucose Random 67 mg/dL (60-115); Lipase 30 U/L (8-78); Potassium 4.2 mmol/L (3.3-5.1); Sodium 137 mmol/L (135-145); Total Protein 7.1 g/dL (6.5-8.0)
[2022-09-24 16:00] VITALS: BP 150/93; PULSE 103; RESP 16; TEMP 36.9; O2SAT 94
--- NOTE | 2022-09-24 17:01 | PC.NURSE ---
pt vitals stable;, reporting 6/10 back pain. will cont to monitor
[2022-09-24 17:53] LABS: Troponin-I High Sensitivity 16.3 ng/L (<3.5-35.0)
== END 2022-09-24 18:58 | disposition home or self-care (01) ==
PROVIDERS: Emergency Provider Emergency Medicine
DX: F41.1 Generalized anxiety disorder (principal); F43.0 Acute stress reaction; Z20.822 Contact with and (suspected) exposure to COVID-19; Z20.828 Contact with and (suspected) exposure to other viral communicable diseases; Z79.899 Other long term (current) drug therapy
CPT/HCPCS: 0241U; 36415; 71045; 80048; 80076; 81001; 83690; 84484; 85025; 93005; 96360; 96361; 99284; 99285